=== PATIENT | female | born 1990 | race Caucasian/White ===

== ENCOUNTER 2017-12-03 19:15 | Emergency (ER) | payer OTHER ==
[~2017-12-03] VITALS: Ht 165.1 cm; Wt 65.3 kg
[2017-12-03 20:18] LABS: AMPHETAMINE NEGATIVE (500 ng/mL); BARBITURATES NEGATIVE (200 ng/mL); BENZODIAZEPINES PRESUMPTIVE POSITIVE (150 ng/mL); BUPRENORPHINE NEGATIVE (10 ng/mL); COCAINE NEGATIVE (150 ng/mL); METHADONE NEGATIVE (200 ng/mL); METHAMPHETAMINE NEGATIVE (500 ng/mL); OPIATES (MORPHINE) NEGATIVE (100 ng/mL); OXYCODONE NEGATIVE (100 ng/mL); PHENCYCLIDINE NEGATIVE (25 ng/mL); PROPOXYPHENE NEGATIVE (300 ng/mL); THC CANNABINOIDS PRESUMPTIVE POSITIVE (50 ng/mL); TRICYCLIC ANTIDEPRESSANTS NEGATIVE (300 ng/mL)
[2017-12-03 20:34] LABS: CHLORIDE 109 mEq/L (99-109); POTASSIUM 3.5 mEq/L (3.7-5.4); SODIUM 144 mEq/L (136-147)
[2017-12-03 20:36] LABS: GLUCOSE 87 mg/dL (70-99)
[2017-12-03 20:39] LABS: CREATININE 0.7 mg/dL (0.6-1.3); SERUM ETHYL ALCOHOL < 10 mg/dL
[2017-12-03 20:40] LABS: UREA NITROGEN (BUN) 8 mg/dL (9-23)
[2017-12-03 20:45] LABS: BENZODIAZEPINES, URINE SCREEN Negative (200 ng/mL)
[2017-12-03 20:48] LABS: QUANTITATIVE HCG < 4.0 MIU/ML
[2017-12-03 20:52] LABS: GFR ESTIMATE (CALCULATED) > 59 mL/min/
[2017-12-03 22:01] LABS: HEMATOCRIT ND % (36.0-46.0); HEMOGLOBIN ND G/DL (11.9-15.5); MCH ND PG (29.0-34.0); MCV ND FL (83-99); RED BLOOD COUNT ND M/uL (3.80-5.20); WHITE BLOOD COUNT ND K/uL (4.1-10.2)
[2017-12-03 22:02] LABS: IMM.PLATELET FRACTION ND (1-7); MCHC ND G/DL (30.0-36.0); NRBC (%) ND /100 WBC (0-0); PLATELET COUNT ND K/uL (156-360); RBC DIS.WIDTH-CV ND % (11.8-14.6); RBC DIS.WIDTH-SD ND % (39-53)
[2017-12-03 23:23] LABS: HEMATOCRIT 39.2 % (36.0-46.0); HEMOGLOBIN 13.8 G/DL (11.9-15.5); MCH 31.9 PG (29.0-34.0); MCHC 35.2 G/DL (30.0-36.0); MCV 90.5 FL (83-99); PLATELET COUNT 179 K/uL (156-360); RBC DIS.WIDTH-CV 11.2 % (11.8-14.6); RBC DIS.WIDTH-SD 37.2 % (39-53); RED BLOOD COUNT 4.33 M/uL (3.80-5.20); WHITE BLOOD COUNT 10.8 K/uL (4.1-10.2)
[2017-12-04 03:32] VITALS: BP 113/62
== END 2017-12-04 03:34 ==
LOC: EME 19:15
PROVIDERS: Emergency Medicine
DX: F33.2 Major depressive disorder, recurrent severe without psychotic features (principal); R45.851 Suicidal ideations; R05 Cough; F17.200 Nicotine dependence, unspecified, uncomplicated
CPT/HCPCS: 71046; 80048; 84702; 84999; 85027; 90837; 99281; 99285; G0480